=== PATIENT | female | born 2000 | race Caucasian/White ===

== ENCOUNTER 2023-04-01 19:15 | Inpatient (IN) | payer OTHER ==
[2023-04-01] MEDS ORDERED: DEXTROSE 5%-LACTATED RINGERS 1,000 ML IV SCH (22:00)
[2023-04-01] MEDS ORDERED: morphine SULFATE 4 MG/ML VIAL IVPB ONE (22:40)
[2023-04-01 22:50] LABS: BASO % 0.3 % (0-2.0); EOS % 0.5 % (0-4.5); HEMATOCRIT 32.2 % (32.4-45.2); HEMOGLOBIN 10.3 GM/dL (10.7-15.3); LYMPH % 24.2 % (8-40); MCH 25.5 pg (25.7-33.7); MEAN CELL VOLUME 79.7 fl (80-96); MEAN PLT VOLUME 9.5 fl (7.5-11.1); MONO % 5.1 % (3.8-10.2); NEUT % 69.9 % (42.8-82.8); PLATELET COUNT 245 10^3/uL (134-434); RBC 4.04 M/mm3 (3.60-5.2); RDW 17.8 % (11.6-15.6); WHITE BLOOD COUNT 10.5 K/mm3 (4.0-10.0)
[2023-04-01] MEDS ORDERED: morphine SULFATE 4 MG/ML VIAL ONE (22:56)
[2023-04-01 23:00] LABS: INR 0.93 (0.83-1.09); PROTHROMBIN TIME (PATIENT) 10.8 SEC (9.7-13.0)
[2023-04-02 00:04] VITALS: BMI 33.3
[2023-04-02 00:24] LABS: BLOOD UREA NITROGEN 5.8 mg/dL (7-18); CALCIUM 8.7 mg/dL (8.5-10.1); CREATININE 0.5 mg/dL (0.55-1.3)
[2023-04-02] MEDS ORDERED: morphine CARPU-JECT 8 MG/1 ML DISP.SYRIN IVPB ONE (05:18)
[2023-04-02] MEDS ORDERED: morphine SULFATE 4 MG/ML VIAL ONE ×2 (05:21→10:30)
[2023-04-02] MEDS ORDERED: OXYTOCIN 30 UNITS in 0.9% NS 30 UNIT/500 ML INFUS.BAG IVPB SCH (07:45)
[2023-04-02] MEDS ORDERED: OXYTOCIN 30 UNITS in 0.9% NS 30 UNIT/500 ML INFUS.BAG IVPB ONE (08:12)
[2023-04-02] MEDS ORDERED: MORPHINE SULFATE 10 MG/1 ML *VIAL IVPB ONE (10:17)
[2023-04-02] MEDS ORDERED: OXYTOCIN 20 UNITS in 0.9% NS 20 UNIT/1,000 ML INFUS.BAG IV ONE (10:43)
[2023-04-02 13:37] LABS: CORD BASE EXCESS -9.4 mmol/L (0-2); CORD HCO3 17.2 mmHg (20-29); CORD PCO2 39.9 mmHg (30-78); CORD pH 7.252 (7.14-7.44)
[2023-04-02 13:40] LABS: CORD BASE EXCESS -9.3 mmol/L (0-2); CORD PCO2 43.8 mmHg (30-78); CORD pH 7.231 (7.14-7.44)
[2023-04-02] MEDS ORDERED: WITCH HAZEL 50% (TUCKS) 40 PAD/JAR PAD TP PRN (14:32)
[2023-04-02] MEDS ORDERED: BENZOCAINE 28 GM HEMORRHOIDAL OINTMENT TP PRN (14:32)
[2023-04-02] MEDS ORDERED: OXYTOCIN 20 UNITS in 0.9% NS 20 UNIT/1,000 ML INFUS.BAG IV SCH (14:45)
[2023-04-02] MEDS: ACETAMINOPHEN 325 MG TABLET (FP) PO PRN (18:14)
[2023-04-02] MEDS: FERROUS SO4 325 MG TABLET (FP) PO SCH (18:14)
[2023-04-02] MEDS: DOCUSATE SODIUM 100 MG CAPSULE (FP) PO SCH (22:14)
[2023-04-03] MEDS: IBUPROFEN 600 MG TABLET (FP) PO PRN ×2 (05:52→12:29)
[2023-04-03] MEDS: DOCUSATE SODIUM 100 MG CAPSULE (FP) PO SCH ×3 (05:52→21:27)
[2023-04-03 08:11] LABS: HEMATOCRIT 21.2 % (32.4-45.2); MCH 25.7 pg (25.7-33.7); MCHC 32.2 g/dl (32.0-36.0); MEAN CELL VOLUME 79.8 fl (80-96); MEAN PLT VOLUME 9.9 fl (7.5-11.1); PLATELET COUNT 225 10^3/uL (134-434); RBC 2.66 M/mm3 (3.60-5.2)
[2023-04-03 08:35] LABS: HEMOGLOBIN 6.8 GM/dL (10.7-15.3); WHITE BLOOD COUNT 49.3 K/mm3 (4.0-10.0)
[2023-04-03 09:34] LABS: ANISOCYTOSIS 3+; MACROCYTOSIS 0
[2023-04-03] MEDS ORDERED: DIPHTH,PERTUSS(ACELL),TET 0.5 ML DISP.SYRIN IM ONE (10:00)
[2023-04-03] MEDS: PRENATAL VITAMINS W/ FOLIC ACID TABLET (FP) PO SCH (10:18)
[2023-04-03] MEDS: FERROUS SO4 325 MG TABLET (FP) PO SCH ×3 (10:18→18:07)
[2023-04-04] MEDS: ACETAMINOPHEN 325 MG TABLET (FP) PO PRN ×2 (05:32→09:50)
[2023-04-04] MEDS: DOCUSATE SODIUM 100 MG CAPSULE (FP) PO SCH ×2 (05:32→14:00)
[2023-04-04 07:18] LABS: HEMATOCRIT 17.5 % (32.4-45.2); MCH 25.9 pg (25.7-33.7); MCHC 32.1 g/dl (32.0-36.0); MEAN CELL VOLUME 80.8 fl (80-96); MEAN PLT VOLUME 9.1 fl (7.5-11.1); PLATELET COUNT 229 10^3/uL (134-434); RBC 2.16 M/mm3 (3.60-5.2); RDW 18.6 % (11.6-15.6)
[2023-04-04 08:37] LABS: HEMOGLOBIN 5.6 GM/dL (10.7-15.3); WHITE BLOOD COUNT 33.9 K/mm3 (4.0-10.0)
[2023-04-04 09:40] LABS: ANISOCYTOSIS 0; HELMET CELLS 0; HOWELL-JOLLY BODIES 0; MACROCYTOSIS 0; OVALOCYTE 0; ROULEAU 0; SICKELED CELLS 0; TARGET CELLS 0; TEAR DROP CELLS 0; TOXIC GRANULATION 0
[2023-04-04] MEDS: PRENATAL VITAMINS W/ FOLIC ACID TABLET (FP) PO SCH (09:49)
[2023-04-04] MEDS: FERROUS SO4 325 MG TABLET (FP) PO SCH ×3 (09:49→17:30)
[2023-04-04 11:55] VITALS: RESP 18
[2023-04-04 15:32] LABS: HEMATOCRIT 23.5 % (32.4-45.2); HEMOGLOBIN 7.5 GM/dL (10.7-15.3); MEAN CELL VOLUME 81.4 fl (80-96); MEAN PLT VOLUME 8.7 fl (7.5-11.1); PLATELET COUNT 279 10^3/uL (134-434); RBC 2.89 M/mm3 (3.60-5.2); RDW 17.6 % (11.6-15.6)
[2023-04-04 15:44] LABS: WHITE BLOOD COUNT 31.7 K/mm3 (4.0-10.0)
[2023-04-04 15:58] LABS: ANISOCYTOSIS 0; HELMET CELLS 0; HOWELL-JOLLY BODIES 0; MACROCYTOSIS 0; OVALOCYTE 0; ROULEAU 0; SICKELED CELLS 0; TARGET CELLS 0; TEAR DROP CELLS 0; TOXIC GRANULATION 0
[2023-04-04 18:41] VITALS: BP 108/56; PULSE 98; TEMP 98.5
== END 2023-04-04 19:20 | disposition home or self-care (01) | DRG 560 ==
LOC: JDEL 19:15 → JLDR 21:45 → J3W 04-02 16:45
PROVIDERS: ADMIT Obstetrics & Gynecology Maternal & Fetal Medicine; ATTEND Obstetrics & Gynecology Maternal & Fetal Medicine
PROC: 30233N1 Transfusion of Nonautologous Red Blood Cells into Peripheral Vein, Percutaneous Approach (ICD-10-PCS; 2023-04-01)
PROC: 10D07Z6 Extraction of Products of Conception, Vacuum, Via Natural or Artificial Opening (ICD-10-PCS; principal; 2023-04-02)
PROC: 0HQ9XZZ Repair Perineum Skin, External Approach (ICD-10-PCS; 2023-04-02)
DX: O70.0 First degree perineal laceration during delivery (principal); Z3A.39 39 weeks gestation of pregnancy; Z37.0 Single live birth; O99.02 Anemia complicating childbirth
CPT/HCPCS: 36415; 36430; 36600; 72170-TC-FY; 80048; 82803; 85025; 85610; 85730; 86780; 86850; 86900; 86901; 86922; 90715; C9803-CS; P9058; U0003; U0005